=== PATIENT | female | born 1990 | race Caucasian/White ===

== ENCOUNTER 2020-08-08 06:00 | Inpatient (IN) | payer OTHER ==
[2020-08-08] MEDS ORDERED: TERBUTALINE 1 MG/ML VIAL SQ PRN (07:38)
[2020-08-08] MEDS ORDERED: METHYLERGONOVINE 0.2 MG/ML 1 ML AMP IM PRN (07:38)
[2020-08-08] MEDS ORDERED: LIDOCAINE 0.5% (PF) 5 MG/ML (50 ML SDV) SQ PRN (07:38)
[2020-08-08] MEDS ORDERED: CARBOPROST TROMETHAMINE 250 MCG/ML 1 ML AMP IM PRN (07:38)
[2020-08-08] MEDS ORDERED: OXYTOCIN 10 UNIT/ML 1 ML VIAL IM PRN (07:38)
[2020-08-08] MEDS ORDERED: OXYTOCIN 30 UNITS/500 ML NS 30 UNIT in SALINE 1 500ML.BAG IV SCH ×2 (07:45→14:30)
[2020-08-08 07:54] LABS: Basophils % (A) 0 %; Eosinophils % (A) 1 %; HCT 42.2 % (34.0-46.0); HGB 13.3 gm/dL (11.4-16.0); Hypochromasia Moderate; Lymphocytes # (A) 1.3 k/uL (1.0-4.8); Lymphocytes % (A) 17 %; MCHC 31.4 g/dL (31.0-37.0); MCV 101.8 fL (80.0-100.0); Monocytes # (A) 0.4 k/uL (0-1.0); Monocytes % (A) 5 %; Neutrophils # (A) 5.5 k/uL (1.3-7.7); Neutrophils % (A) 74 %; Platelet Count 182 k/uL (150-450); RBC 4.15 m/uL (3.80-5.40); RDW 12.4 % (11.5-15.5); WBC 7.4 k/uL (3.8-10.6)
[2020-08-08] MEDS: LACTATED RINGERS 1,000 ML IV SCH ×2 (08:15→17:18)
--- NOTE | 2020-08-08 08:34 | P.HPOB ---
History of Present Illness H&P Date: 08/08/20 Chief Complaint: IUP at 40 and 3/sevenths weeks, LGA This is a 30-year-old 4 para 3003 that presents to labor and delivery at 40-3/7 weeks for induction of labor. Patient had an ultrasound done yesterday revealing an estimated weight of 9 lbs. 8 oz. and normal amniotic fluid. Patient has noted good movement throughout this . Patient has had uncomplicated care. Patient denies contractions or loss of fluid this morning. On bloodwork patient has a blood type of A+, rubella status immune, B surface antigen negative, HIV negative, RPR nonreactive, GBS negative. Review of Systems Constitutional: Denies chills, Denies fatigue, Denies fever Ears, nose, mouth and throat: Denies headache Cardiovascular: Reports leg edema Respiratory: Denies dyspnea Gastrointestinal: Denies nausea, Denies vomiting Genitourinary: Reports Past Medical History History of Any Multi-Drug Resistant Organisms: None Reported Additional Past Surgical History / Comment(s): Lasix surgery Past Anesthesia/Blood Transfusion Reactions: No Reported Reaction Smoking Status: Never smoker Past Alcohol Use History: None Reported Past Drug Use History: None Reported - Past Family History Mother Family Medical History: No Reported History Father Family Medical History: No Reported History Medications and Allergies Home Medications Medication Instructions Recorded Confirmed Type Pnv No.95/Ferrous Fum/Folic AC 1 each PO DAILY 05/25/20 08/08/20 History [ Multivitamin Tablet] Cholecalciferol (Vitamin D3) 125 mcg PO DAILY 08/08/20 08/08/20 History [Vitamin D3 (5000 Iu)] Allergies Allergy/AdvReac Type Severity Reaction Status Date / Time No Known Allergies Allergy Verified 05/25/20 19:34 Exam Osteopathic Statement: *. No significant issues noted on an osteopathic structural exam other than those noted in the History and Physical/Consult. Vital Signs Temp Pulse Resp BP Pulse Ox 08/08/20 07:35 97.9 F 93 18 110/66 100 Intake and Output 08/07/20 08/08/20 08/08/20 22:59 06:59 14:59 Other: Weight 80.739 kg Targeted physical exam is performed in this date and vp of global marketing a well-nourished well-developed female in no acute distress, breathing is noted to be nonlabored, heart has regular rate and rhythm, abdomen is gravid, heart tones returned be category 1 and she is junito irregularly, on cervical exam she is 2/50/-2 station amniotomy is performed and scant fluid was obtained, fluid appears clear. Results Result Diagrams: 08/08/20 07:35 Abnormal Lab Results - Last 24 Hours (Table) 08/08/20 Range/Units 07:35 MCV 101.8 H (80.0-100.0) fL Assessment and Plan (1) Post-dates Current Visit: Yes Status: Acute Code(s): O48.0 - POST-TERM SNOMED Code(s): 34024673 (2) LGA (large for gestational age) fetus Current Visit: Yes Status: Acute Code(s): GSQ0967 - SNOMED Code(s): 496587099 Plan: This 30-year-old 003 at 40-3/7 weeks presents to labor and delivery for in duction of labor secondary to postdates and LGA. Patient was admitted to labor and delivery and requested amniotomy prior to Pitocin augmentation of labor. Patient states in her prior labors and amniotomy has helped with labor augmentation. If no contractions are noted after a few hours we will start Pitocin augmentation of labor. Patient states understanding of the plan and all questions are answered. Anticipate spontaneous vaginal delivery later this afternoon.
[2020-08-08] MEDS ORDERED: diphenhydrAMINE 50 MG/ML 1 ML VIAL IVP PRN ×2 (14:27)
[2020-08-08] MEDS ORDERED: HYDROCORTISONE 2.5% RECTAL CREAM 30 GM TUBE RECTAL PRN (14:27)
[2020-08-08] MEDS ORDERED: diphenhydrAMINE 50 MG CAP PO PRN (14:27)
[2020-08-08] MEDS ORDERED: ACETAMINOPHEN TAB 325 MG TAB PO PRN (14:27)
[2020-08-08] MEDS ORDERED: diphenhydrAMINE 25 MG CAP PO PRN (14:27)
[2020-08-08] MEDS ORDERED: BENZOCAINE/MENTHOL SPRAY 1 GM/SPRAY AEROSOL TOPICAL PRN (14:27)
[2020-08-08] MEDS ORDERED: HYDROcodone/APAP 5-325MG 1 EACH TAB PO PRN (14:27)
[2020-08-08] MEDS ORDERED: SIMETHICONE 80 MG CHEWABLE PO PRN (14:27)
[2020-08-08] MEDS ORDERED: ZOLPIDEM 5 MG TAB PO PRN (14:27)
[2020-08-08] MEDS ORDERED: LANOLIN CREAM 5 GM TUBE TOPICAL PRN (14:27)
--- NOTE | 2020-08-08 14:30 | P.PROBDLV ---
Vaginal Delivery Note - . Vaginal Delivery Note: This is a 30-year-old 4 para 3003 at 40-3/7 weeks that presented to labor and delivery for induction of labor secondary to postdates and suspected LGA. Patient was admitted to labor and delivery and amniotomy was performed and scant clear fluid was noted. Patient made minimal progress over the next few hours therefore elected to start Pitocin for augmentation of labor. Patient progressed through labor eventually becoming complete, she began pushing and h ad a normal spontaneous vaginal delivery of a viable female infant at 1414, weight of 8 lbs. 2 oz. with Apgars of 9 and 9 at one and 5 minutes respectively infant did have an noted body cord that was delivered through. After a two- minute delayed the umbilical cord was doubly clamped and cut and the was handed off to the maternal abdomen. The placenta was then delivered spontaneously intact with a three-vessel cord noted. The uterus was then noted to be firm and below the umbilicus. Estimated blood loss for this delivery 200 mL. No vaginal lacerations were appreciated on inspection the vaginal vault. Patient and infant tolerated delivery well and are resting comfortably.
[2020-08-08] MEDS: IBUPROFEN 600 MG TAB PO PRN (18:57)
[2020-08-08] MEDS: SENNOSIDES-DOCUSATE SODIUM 1 EACH TAB PO SCH (20:10)
[2020-08-08 20:16] VITALS: RESP 16
[2020-08-09 00:20] VITALS: TEMP 98.1
[2020-08-09] MEDS: SENNOSIDES-DOCUSATE SODIUM 1 EACH TAB PO SCH (08:17)
[2020-08-09] MEDS: IBUPROFEN 600 MG TAB PO PRN (08:18)
--- NOTE | 2020-08-09 09:51 | P.DS ---
Providers Date of admission: 08/08/20 07:05 Expected date of discharge: 08/09/20 Attending physician: Ciara Soto Primary care physician: Stated None - Discharge Diagnosis(es) (1) Post-dates Current Visit: Yes Status: Acute (2) LGA (large for gestational age) fetus Current Visit: Yes Status: Acute (3) Status post normal vaginal delivery Current Visit: Yes Status: Acute Hospital Course: This is a 30-year-old G4 now P4 status post normal spontaneous vaginal delivery. Patient was admitted to labor and delivery yesterday 08/08/20 for induction of labor secondary to postdates at 40-3/7 weeks. Patient in addition had an ultrasound the day before noting a LGA fetus estimated weight of 9 lbs. 8 oz. Patient had been receiving routine care with myself which is been essentially uncomplicated. Patient was admitted to labor and delivery, amniotomy was performed per patient request. After approximately 2 hours with minimal discomfort, contractions, cervical change patient elected to augment labor with Pitocin. Pitocin augmentation of labor was begun. Patient became uncomfortable and cervical change was noted. Patient progressed to complete and with excellent maternal effort had a normal spontaneous vaginal delivery of a viable female infant at 1414, weight of 8 lbs. 2 oz. and Apgars of 9 and 9 at one and 5 minutes respectively. Patient did not sustain any vaginal lacerations that required repair. Patient's course has been uneventful. This day #1 she is ambulating and voiding without difficulty. She is tolerating a regular diet without nausea or vomiting. She states her pain is well-controlled. She would like discharge home at 24 hours. Patient Condition at Discharge: Good Plan - Discharge Summary New Discharge Prescriptions: No Action Pnv No.95/Ferrous Fum/Folic AC [ Multivitamin Tablet] 1 each PO DAILY Cholecalciferol (Vitamin D3) [Vitamin D3 (5000 Iu)] 125 mcg PO DAILY [place]-3/Dha/Epa/Fish Oil [Fish Oil 500 mg Softgel] 1 each PO Ascorbic Acid [Vitamin C] 500 mg PO DAILY Discharge Medication List Pnv No.95/Ferrous Fum/Folic AC [ Multivitamin Tablet] 1 each PO DAILY 05/25/20 [History] Ascorbic Acid [Vitamin C] 500 mg PO DAILY 08/08/20 [History] Cholecalciferol (Vitamin D3) [Vitamin D3 (5000 Iu)] 125 mcg PO DAILY 08/08/20 [History] [place]-3/Dha/Epa/Fish Oil [Fish Oil 500 mg Softgel] 1 each PO 08/08/20 [History] Follow up Appointment(s)/Referral(s): Ciara Soto DO [Doctor of Osteopathic Medicine] - 2 Weeks Patient Instructions/Handouts: Vaginal Delivery (DC), Vaginal Delivery (GEN) Discharge Disposition: HOME SELF-CARE
[2020-08-09 12:17] VITALS: BP 100/60; PULSE 89
== END 2020-08-09 15:51 | disposition home or self-care (01) | DRG 807 ==
LOC: 4FBP 07:05
PROVIDERS: ADMIT Obstetrics & Gynecology Obstetrics; ATTEND Obstetrics & Gynecology Obstetrics
PROC: 10E0XZZ Delivery of Products of Conception, External Approach (ICD-10-PCS; principal; 2020-08-08)
DX: O36.63X0 Maternal care for excessive fetal growth, third trimester, not applicable or unspecified (principal); Z37.0 Single live birth; O48.0 Post-term pregnancy; Z3A.40 40 weeks gestation of pregnancy
CPT/HCPCS: 85025; 86850; 86900; 86901